=== PATIENT | female | born 1955 | race Caucasian/White ===

== ENCOUNTER 2023-06-03 13:40 | Outpatient (CLI) | payer MEDICARE, SELFPAY ==
--- NOTE | ~2023-06-03 | XR_ITS ---
XR hip LT 2V w AP pelvis DATE: 06/03/2023 14:06 INDICATION: Fall from ladder. Left hip pain TECHNIQUE: AP pelvis. AP and lateral views of left hip COMPARISON: None FINDINGS: No pelvic fracture or bone destruction. Normal alignment at the pubic symphysis and sacral iliac joints. Hip joint space is well preserved bilaterally. No fracture or dislocation, avascular necrosis or bone destruction of either hip is evident. IMPRESSION: Negative left hip Reviewed, dictated and finalized at location [facility]. IMPRESSION: Negative left hip
--- NOTE | ~2023-06-03 | XR_ITS ---
[id number] DATE: 06/03/2023 14:06 INDICATION: Left rib pain after fall from ladder TECHNIQUE: PA chest. 3 views of the left ribs. COMPARISON: None FINDINGS: Normal heart size. No hilar or mediastinal enlargement. No pulmonary infiltrate or consolid ation, pleural effusion or pulmonary vascular congestion or pneumothorax. Biopsy marker overlies right breast. Surgical clips and biopsy marker overlie the left breast. There is osteopenia. No left rib fracture is detected. IMPRESSION: No active cardiopulmonary disease No detected left rib fracture Reviewed, dictated and finalized at [facility]. Reviewed, dictated and finalized at location [facility].
--- NOTE | ~2023-06-03 | XR_ITS ---
XR lumbar spine 6V w bending DATE: 06/03/2023 14:06 INDICATION: Fall from ladder TECHNIQUE: AP, bilateral oblique, lateral, coned lateral lumbosacral views. Standing flexion and exte nsion lateral views. COMPARISON: None FINDINGS: The lumbar vertebrae are normally aligned, without fracture or bone destruction or spondylo listhesis. There is no instability on flexion or extension. Included lower thoracic and lumbar pedicles are intact. There is mild degenerative spurring of the therese mbar spine and mild to moderate loss of interspace height at L1-2.. Lumbar and lumbosacral interspace s are relatively preserved otherwise. No spondylolysis or spondylolisthesis. IMPRESSION: Mild degenerative change Reviewed, dictated and finalized at location L. IMPRESSION: Mild degenerative change
== END 2023-06-03 13:41 | disposition home or self-care (01) ==
PROVIDERS: PCP Physician Assistant; Visit Provider Physician Assistant
DX: M54.50 Low back pain, unspecified (principal); R07.9 Chest pain, unspecified
CPT/HCPCS: 71101; 72114; 73502

== ENCOUNTER 2023-09-13 10:44 | Outpatient (CLI) | payer MEDICARE, SELFPAY ==
[2023-09-13 11:26] LABS: Basophils Absolute Auto 0.1 K/mm3 (0.0-0.1); Basophils Percent Auto 1.1 % (0.2-1.2); Eosinophils Absolute Auto 0.2 K/mm3 (0-0.3); Eosinophils Percent Auto 4.5 % (0-4.4); Hematocrit 39.6 % (37.0-47.0); Immature Granulocyte Absolute 0.02 K/mm3 (0.00-0.031); Immature Granulocyte Percent A 0.4 % (0-0.5); Lymphocytes Absolute Auto 1.49 K/mm3 (0.9-3.2); Lymphocytes Percent Auto 33.5 % (18.3-44.2); Mean Corpuscular HGB Conc 32.8 g/dl (32-36); Mean Corpuscular Hemoglobin 28.9 pg (26-34); Mean Platelet Volume 10.8 fl (7.4-10.4); Monocytes Absolute Auto 0.3 K/mm3 (0.1-0.6); Monocytes Percent Auto 6.7 % (2.6-8.5); Neutrophils Absolute Auto 2.4 K/mm3 (1.3-6.7); Neutrophils Percent Auto 53.8 % (45.5-73.1); Platelet Count Result 275 k/mm3 (150-375); Red Cell Distribution Width 12.9 % (11.5-14.5); White Blood Count 4.5 K/mm3 (4.5-10.0)
[2023-09-13 11:40] LABS: Alanine Aminotransferase 25 U/L (6-35); Albumin Level 4.5 g/dL (3.5-5.1); Alkaline Phosphatase 68 U/L (38-126); Anion Gap 4 mmol/L (8-16); Aspartate Amino Transferase 23 U/L (14-36); Bilirubin,Total 0.6 mg/dL (0.2-1.3); Blood Urea Nitrogen 16 mg/dL (7-17); Calcium 9.9 mg/dL (8.4-10.2); Carbon Dioxide 30 mmol/L (22-30); Chloride 104 mmol/L (98-107); Cholesterol 231 mg/dL (0-200); Estimated Glomerular Filt Rate > 60; Glucose 105 mg/dL (65-110); HDL Direct 50 mg/dL; Potassium 4.4 mmol/L (3.4-5.0); Sodium 138 mmol/L (137-145); Triglycerides 177 mg/dL (<150)
[2023-09-13 11:52] LABS: LDL Cholesterol Direct 131 mg/dL
[2023-09-13 12:19] LABS: Vitamin D 25 Hydroxy 63.4 ng/mL
[2023-09-13 13:45] LABS: Folic Acid > 20.0 ng/mL (2.76->20)
== END 2023-09-13 10:45 | disposition home or self-care (01) ==
PROVIDERS: PCP Physician Assistant; Visit Provider Physician Assistant
DX: R53.83 Other fatigue (principal); E78.5 Hyperlipidemia, unspecified; E55.9 Vitamin D deficiency, unspecified
CPT/HCPCS: 36415; 80053; 80061; 82306; 82607; 82746; 84443; 85025

== ENCOUNTER 2024-01-19 07:50 | Outpatient (NON) | payer MEDICARE, SELFPAY | END 2024-01-19 07:51 | disposition home or self-care (01) | PROVIDERS: PCP Physician Assistant; Visit Provider Internal Medicine Gastroenterology | DX: Z12.11 Encounter for screening for malignant neoplasm of colon (principal) | CPT/HCPCS: 88305 ==

== ENCOUNTER 2024-01-19 07:59 | Day surgery (SDC) | payer MEDICARE, SELFPAY ==
[2023-12-30 15:20] VITALS: BMI 24.5
[2024-01-03 10:42] VITALS: BMI 24.9
[2024-01-19 09:30] VITALS: BP 136/96; PULSE 78; RESP 20; TEMP 36.9; O2SAT 99; BMI 24.1
--- NOTE | 2024-01-19 09:35 | PM.HPGS ---
History of Present Illness History of Present Illness Consent: Risks, benefits, and alternatives have been discussed and questions answered. Patient agrees to proceed with procedure. Chief complaint: Neoplasm Screening Narrative: Irma Ceron is a 68 year old female presents for screening colonoscopy. Patient reports that her current weight appetite and bowel movements are normal. Patient denies abdominal pain. She has had no bleeding. Family history noncontributory. Review of Systems Review of Systems: Review of systems noncontributory. [facility] Past Medical History Medical History Breast cancer Family History Family History Mother TIA (transient ischemic attack) Sibling Melanoma Grandparent Breast cancer Social History Social History Smoking status: Never smoker Second hand tobacco smoke exposure: No Alcohol intake: current Alcohol use details: occasional Substance use: never Substance use type: does not use Lack of Transportation: No Lack of Food: Never True Current Housing: I Have Housing Concerned About Future Housing: No Difficulty Paying Gas/Electric Bills: No Difficulty Paying for Meds: No Currently Unemployed: No Education: High School Diploma/GED Difficulty w/ Childcare or Family Care: No Living arrangements: alone Spiritual care concerns: No Meds Home Medications and Allergies Home Medications Medication Instructions Recorded Confirmed Type alprazolam 0.5 mg tablet 0.5 mg PO DAILY #30 tabs 01/04/23 01/19/24 Rx ascorbate calcium (vitamin C) 500 500 mg PO DAILY 01/04/23 01/19/24 History mg tablet cholecalciferol (vitamin D3) 10 10 mcg PO DAILY 01/04/23 01/19/24 History mcg (400 unit) capsule vitamin B comp and C no.3 15 mg-10 1 cap PO DAILY 01/04/23 01/19/24 History mg-50 mg-5 mg-300 mg capsule (B Complex Plus Vitamin C) citalopram 40 mg tablet 40 mg PO DAILY #90 tabs 08/31/23 01/19/24 Rx Allergies Allergy/AdvReac Type Severity Reaction Status Date / Time meperidine [From Demerol] Allergy Mild Hallucinati Verified 01/19/24 09:07 ng Vital Signs Vital Signs - 24 hr 01/19/24 09:30 Temperature 98.4 F Pulse Rate 78 Respiratory Rate 20 Blood Pressure 136/96 H Pulse Oximetry 99 Oxygen Delivery Room Air Exam Narrative: Physical exam reveals patient to be alert. Vital signs stable. HEENT exam is unremarkable. Patient is anicteric. Lungs are clear to auscultation and percussion. Heart is without murmur or extra sounds. Abdomen bowel sounds are present soft nontender with no organomegaly. Digital external rectal exam normal. Assessment and Plan Assessment and plan (1) Encounter for screening colonoscopy: Code(s): Z12.11 - Encounter for screening for malignant neoplasm of colon Status: Acute Assessment and Plan: Patient presents today for screening colonoscopy. She appears to be at average risk for colon polyps. Further recommendations may be given after endoscopy.
[2024-01-19] MEDS: LACTATED RINGERS 1,000 ML 30 ML IV CONT (09:46)
--- NOTE | 2024-01-19 09:50 | WPDANESEPPF ---
Anes - Initial Pre Proc Eval Procedure: Operation Date: 01/19/24 10:30 Proposed Procedures p Screening Colonoscopy - Brock Horton MD Date/Time: 01/19/24 09:50 Surgeon: Brock Horton MD Pre Op Diagnosis: Neoplasm Screening Patient Data Age: 68 Gender: F Height: 1.68 m Weight: 67.9 kg Last Vital Signs Temp 36.9 C 01/19/24 09:30 Pulse 78 01/19/24 09:30 Resp 20 01/19/24 09:30 BP 136/96 H 01/19/24 09:30 Pulse Ox 99 01/19/24 09:30 O2 Del Method Room Air 01/19/24 09:30 Allergies Allergy/AdvReac Type Severity Reaction Status Date / Time meperidine [From Demerol] Allergy Mild Hallucinati Verified 01/19/24 09:07 ng Home Medications Medication Instructions Recorded Confirmed Type alprazolam 0.5 mg tablet 0.5 mg PO DAILY #30 tabs 01/04/23 01/19/24 Rx ascorbate calcium (vitamin C) 500 500 mg PO DAILY 01/04/23 01/19/24 History mg tablet cholecalciferol (vitamin D3) 10 10 mcg PO DAILY 01/04/23 01/19/24 History mcg (400 unit) capsule vitamin B comp and C no.3 15 mg-10 1 cap PO DAILY 01/04/23 01/19/24 History mg-50 mg-5 mg-300 mg capsule (B Complex Plus Vitamin C) citalopram 40 mg tablet 40 mg PO DAILY #90 tabs 08/31/23 01/19/24 Rx Patient hx anesthesia problems: none Family hx anesthesia problems: none Results Review: All pre-operative results and documents have been reviewed as part of the pre-operative evaluation. [facility] Past Medical History Medical History (Updated 01/19/24 @ 09:50 by Michael Topete MD) Anxiety Breast cancer Hyperlipidemia Surgical History Surgical History (Updated 01/19/24 @ 09:51 by Michael Topete MD) History of shoulder surgery S/P lumpectomy, left breast Family History Family History Mother TIA (transient ischemic attack) Sibling Melanoma Grandparent Breast cancer Social History Social History Smoking status: Never smoker Second hand tobacco smoke exposure: No Alcohol intake: current Alcohol use details: occasional Substance use: never Substance use type: does not use Lack of Transportation: No Lack of Food: Never True Current Housing: I Have Housing Concerned About Future Housing: No Difficulty Paying Gas/Electric Bills: No Difficulty Paying for Meds: No Currently Unemployed: No Education: High School Diploma/GED Difficulty w/ Childcare or Family Care: No Living arrangements: alone Spiritual care concerns: No Anes - Eval Final PreProcedure Day of Procedure 01/19/24 09:50 Patient weight: normal Heart: regular rate and rhythm Lungs: clear to auscultation Airway: Mallampati scale class II Neurological: alert and oriented Last oral intake: >/= 8 hours ASA classification: II Emergent: no Anesthetic plan: proceed Anesthesia type and monitoring: general GIVS and standard monitoring Results Review: All pre-operative results and documents have been reviewed as part of the pre-operative evaluation. Informed Consent: The patient's anesthetic plan and its attendant risks and benefits were discussed with the patient/family/POA. Questions were solicited and answers provided to the satisfaction of the patient/family/POA.
[2024-01-19 11:08] VITALS: BP 128/76; PULSE 69; RESP 14; O2SAT 97
[2024-01-19 11:18] VITALS: BP 106/71; PULSE 73; RESP 14; O2SAT 100
[2024-01-19 11:28] VITALS: BP 121/71; PULSE 66; RESP 14; O2SAT 97
--- NOTE | 2024-01-19 11:29 | WPDANESPN ---
Anes - Prog Note Post-Op Date/Time: 01/19/24 11:29 Cardiovascular status: normal Respiratory status: normal Airway patency: baseline Mental status: baseline Post-Op hydration status: normal Vital Signs: Last Vital Signs Temp 36.9 C 01/19/24 09:30 Pulse 73 01/19/24 11:18 Resp 14 01/19/24 11:18 BP 106/71 01/19/24 11:18 Pulse Ox 100 01/19/24 11:18 O2 Del Method Room Air 01/19/24 11:18 Pain Score (VAS): 0/10 I/O: Intake & Output 01/18/24 01/19/24 01/19/24 23:59 07:59 15:59 Intake Total 500 Balance 500 Patient Feedback: Patient satisfied with anesthetic care.
== END 2024-01-19 11:41 | disposition home or self-care (01) ==
PROVIDERS: PCP Physician Assistant; Visit Provider Internal Medicine Gastroenterology
PROC: 0DJD8ZZ Inspection of Lower Intestinal Tract, Via Natural or Artificial Opening Endoscopic (ICD-10-PCS; CPT 45378; principal; 2024-01-19 10:30)
DX: Z12.11 Encounter for screening for malignant neoplasm of colon (principal); D12.5 Benign neoplasm of sigmoid colon
CPT/HCPCS: 45385

== ENCOUNTER 2024-02-22 14:59 | Outpatient (CLI) | payer MEDICARE, SELFPAY ==
--- NOTE | ~2024-02-22 | MM_ITS ---
EXAMINATION: MM screening [place] BI w tobi HISTORY: Screening mammogram TECHNIQUE: Craniocaudal and mediolateral oblique 3-D tomosynthesis images were obtained and synthetic 2-D images were generated. CAD analysis was submitted and interpreted. COMPARISON: No prior mammogram is available for comparison at this institution. BREAST PARENCHYMAL COMPOSITION: The breasts are heterogeneously dense, which may obscure small masses . FINDINGS: Biopsy markers noted on the right; history of prior benign bilateral breast biopsies. Multiple surgical clips are noted on the left; history of partial left mastectomy for breast cancer. History of bilateral breast lifts. No suspicious mass lesion or malignant calcification is noted. Likely postoperative scarring on the l eft. IMPRESSION: 1. Status post left partial mastectomy for breast cancer. No mammographic evidence of malignancy. 2. Recommend comparison with prior mammogram examinations to document stability BI-RADS Category 0: Incomplete: Needs additional imaging evaluation. Reviewed, dictated and finalized at location [facility]. IMPRESSION: 1. Status post left partial mastectomy for breast cancer. No mammographic evide nce of malignancy. 2. Recommend comparison with prior mammogram examinations to document stability BI-RADS Category 0: Incomplete: Needs additional imaging evaluation.
== END 2024-02-22 15:00 | disposition home or self-care (01) ==
PROVIDERS: PCP Physician Assistant; Visit Provider Physician Assistant
DX: Z12.31 Encounter for screening mammogram for malignant neoplasm of breast (principal); R92.8 Other abnormal and inconclusive findings on diagnostic imaging of breast
CPT/HCPCS: 77063; 77067

== ENCOUNTER 2024-08-31 11:17 | Outpatient (CLI) | payer MEDICARE, SELFPAY ==
[2024-08-31 11:52] LABS: Basophils Absolute Auto 0.1 K/mm3 (0.0-0.1); Basophils Percent Auto 1.3 % (0.2-1.2); Eosinophils Absolute Auto 0.2 K/mm3 (0-0.3); Eosinophils Percent Auto 4.5 % (0-4.4); Hematocrit 40.3 % (37.0-47.0); Hemoglobin 13.2 g/dL (12.0-15.0); Immature Granulocyte Absolute 0.02 K/mm3 (0.00-0.031); Immature Granulocyte Percent A 0.4 % (0-0.5); Lymphocytes Absolute Auto 1.54 K/mm3 (0.9-3.2); Lymphocytes Percent Auto 33.3 % (18.3-44.2); Mean Corpuscular HGB Conc 32.8 g/dl (32-36); Mean Corpuscular Hemoglobin 29.1 pg (26-34); Mean Corpuscular Volume 88.8 fl (80-100); Mean Platelet Volume 11.2 fl (7.4-10.4); Monocytes Absolute Auto 0.4 K/mm3 (0.1-0.6); Neutrophils Absolute Auto 2.4 K/mm3 (1.3-6.7); Neutrophils Percent Auto 52.5 % (45.5-73.1); Platelet Count Result 282 k/mm3 (150-375); Red Blood Count 4.54 M/mm3 (4.2-5.4); Red Cell Distribution Width 13.1 % (11.5-14.5); White Blood Count 4.6 K/mm3 (4.5-10.0)
[2024-08-31 12:12] LABS: Alanine Aminotransferase 22 U/L (6-35); Albumin Level 4.4 g/dL (3.5-5.1); Alkaline Phosphatase 56 U/L (38-126); Anion Gap 7 mmol/L (4-12); Aspartate Amino Transferase 25 U/L (14-36); Bilirubin,Total 0.5 mg/dL (0.2-1.3); Blood Urea Nitrogen 16 mg/dL (7-17); Calcium 9.7 mg/dL (8.4-10.2); Carbon Dioxide 28 mmol/L (22-30); Chloride 103 mmol/L (98-107); Cholesterol 242 mg/dL (0-200); Estimated Glomerular Filt Rate > 60; Glucose 102 mg/dL (65-110); HDL Direct 53 mg/dL; Potassium 4.3 mmol/L (3.4-5.0); Sodium 138 mmol/L (137-145); Triglycerides 133 mg/dL (<150)
[2024-08-31 12:23] LABS: LDL Cholesterol Direct 143 mg/dL
[2024-08-31 12:43] LABS: Vitamin D 25 Hydroxy 61.1 ng/mL
== END 2024-08-31 11:18 | disposition home or self-care (01) ==
PROVIDERS: PCP Physician Assistant; Visit Provider Internal Medicine
DX: R53.83 Other fatigue (principal); E55.9 Vitamin D deficiency, unspecified; E78.5 Hyperlipidemia, unspecified
CPT/HCPCS: 36415; 80053; 80061; 82306; 84443; 85025

== ENCOUNTER 2024-12-22 10:52 | Outpatient (CLI) | payer MEDICARE, SELFPAY | END 2024-12-22 10:53 | disposition home or self-care (01) | PROVIDERS: PCP Physician Assistant; Visit Provider Otolaryngology | DX: H92.12 Otorrhea, left ear (principal); H93.292 Other abnormal auditory perceptions, left ear; H90.3 Sensorineural hearing loss, bilateral; H93.8X1 Other specified disorders of right ear; H61.112 Acquired deformity of pinna, left ear; M35.7 Hypermobility syndrome; H69.92 Unspecified Eustachian tube disorder, left ear; J31.0 Chronic rhinitis; Z86.69 Personal history of other diseases of the nervous system and sense organs | CPT/HCPCS: 92557; 92567 ==

== ENCOUNTER 2025-02-23 15:45 | Outpatient (CLI) | payer MEDICARE, SELFPAY ==
--- NOTE | ~2025-02-23 | MM_ITS ---
EXAMINATION: MM screening [place] BI w tobi HISTORY: Screening TECHNIQUE: Craniocaudal and mediolateral oblique 3-D tomosynthesis images were obtained and synthetic 2-D images were generated. CAD analysis was submitted and interpreted. COMPARISON: Comparison to multiple prior studies sequentially, with oldest reviewed study dated 08/15. BREAST PARENCHYMAL COMPOSITION: Dense: The breasts are heterogeneously dense, which may obscure small masses FINDINGS: There is no evidence of suspicious mass, calcification, or architectural distortion to sugg est malignancy in either breast. There has been no suspicious interval change. IMPRESSION: 1. No mammographic evidence of malignancy. 2. Recommend routine screening mammography in one year. BI-RADS Category 1: Negative Reviewed, dictated and finalized at location A.
== END 2025-02-23 15:46 | disposition home or self-care (01) ==
PROVIDERS: PCP Internal Medicine; Visit Provider Internal Medicine
DX: Z12.31 Encounter for screening mammogram for malignant neoplasm of breast (principal)
CPT/HCPCS: 77063; 77067